=== PATIENT | female | born 1955 | race Caucasian/White ===

== ENCOUNTER → 2021-01-29 | Outpatient (CLI) | payer MEDICARE, MEDICAID ==
--- NOTE | 2021-01-30 07:45 | REP ---
INDICATION: DYSPHAGIA COMPARISON: None. TECHNIQUE: Chacon scale and color evaluation of the thyroid gland using the linear high frequency transducer. FINDINGS: The thyroid gland is normal in contour, shape, size, and echogenicity. No nodule/mass or cystic abnormalities are appreciated. Right thyroid lobe measures 4.6 x 1.5 x 1.9 cm. Isthmus measures 4.0 mm in width. Left thyroid lobe measures 3.9 x 1.9 x 1.2 cm. IMPRESSION: Normal thyroid ultrasound. <Electronically signed by Fidencio Juarez > 01/30/21 [id number]
== END ==
LOC: M RAD 16:09
PROVIDERS: ATTEND Specialist
DX: R13.14 Dysphagia, pharyngoesophageal phase (principal)

== ENCOUNTER → 2021-05-26 | Outpatient (REF) | payer MEDICARE, MEDICAID ==
[2021-05-26 18:29] LABS: MALB URINE SIEMENS 30.9 MG/L; MAU/CREAT RATIO 26.6 MCG/MG (0.0-30.0)
== END ==
LOC: M LAB REF 16:42
PROVIDERS: ATTEND Nurse Practitioner Family
DX: E11.65 Type 2 diabetes mellitus with hyperglycemia (principal)

== ENCOUNTER → 2023-08-26 | Outpatient (CLI) | payer MEDICARE, MEDICAID ==
[~2023-08-26] MED LIST: ISOVUE-300 61% 100ML VIAL As Ordered ONE; LIDOCAINE 1% MDV 20ML VIAL As Ordered ONE; methylPREDNISolone SUSP 40MG/ML 1ML VIAL (DEPO MEDROL) As Ordered ONE
== END ==
LOC: M RAD 11:03
PROVIDERS: ATTEND Physician Assistant Surgical
DX: M16.11 Unilateral primary osteoarthritis, right hip (principal)
CPT/HCPCS: J1030; Q9967

== ENCOUNTER 2023-11-08 06:40 | Day surgery (SDC) | payer MEDICARE, MEDICAID ==
[~2023-11-08] VITALS: Ht 152.4 cm; Wt 94.2 kg
[~2023-11-08 06:40] MED LIST changes: +ACET650T61 PO; +ASPI-161 PO; +CETI10CH PO; +CINN500C12 PO; +FENO145T7 PO; +GALZ50CA PO; +GLIM4TAB5 PO; -ISOVUE-300 61% 100ML VIAL As Ordered ONE; +JANU100T PO; +JARD1TAB PO; -LIDOCAINE 1% MDV 20ML VIAL As Ordered ONE; +LISI10TA22 PO; +METF-838 PO; +NS 1,000 ML IV ONE; +PANT40TA29 PO; +SIMV40TA20 PO; +TRUL10IN; +VITA100093 PO; +ZYRTTAB8 PO; -methylPREDNISolone SUSP 40MG/ML 1ML VIAL (DEPO MEDROL) As Ordered ONE
[2023-11-08] MEDS ORDERED: LIDOCAINE 2% 100MG/5ML SDV (FOR ANES.) As Ordered ONE (07:18)
[2023-11-08] MEDS ORDERED: propofoL 500 MG/50 ML VIAL As Ordered ONE (07:19)
[2023-11-08] MEDS ORDERED: fentaNYL 100 MCG/2 ML INJECTION As Ordered ONE (07:19)
[2023-11-08] MEDS ORDERED: ONDANSETRON 4MG 2ML VIAL IV STA (08:26)
[2023-11-08 08:45] VITALS: TEMP 98.4
[2023-11-08 10:15] VITALS: BP 168/93; O2SAT 97
[2023-11-10] MEDS ORDERED: VITA-199 PO (09:21)
[2023-11-10] MEDS ORDERED: MELA3TAB49 PO (09:21)
== END 2023-11-08 11:54 | disposition home or self-care (01) ==
LOC: M OPP 06:40
PROVIDERS: ATTEND Internal Medicine Gastroenterology
DX: K22.89 Other specified disease of esophagus (principal); K22.2 Esophageal obstruction; K29.70 Gastritis, unspecified, without bleeding; R13.10 Dysphagia, unspecified; E11.9 Type 2 diabetes mellitus without complications; Z79.02 Long term (current) use of antithrombotics/antiplatelets; Z79.1 Long term (current) use of non-steroidal anti-inflammatories (NSAID); Z79.52 Long term (current) use of systemic steroids; Z79.82 Long term (current) use of aspirin; Z79.84 Long term (current) use of oral hypoglycemic drugs; Z79.899 Other long term (current) drug therapy
CPT/HCPCS: 43239; 88305; J3010

== ENCOUNTER → 2023-12-19 | Outpatient (CLI) | payer MEDICARE, MEDICAID ==
[~2023-12-19] MED LIST changes: -ASPI-161 PO; +ASPI-615 PO; +CLOT1CRE56 TOP; +LIDOCAINE 1% MDV 20ML VIAL As Ordered ONE; +MELA3TAB49 PO; -NS 1,000 ML IV ONE; +VITA-199 PO
[2023-12-19 10:15] VITALS: TEMP 98
[2023-12-19 11:30] VITALS: BP 124/74; O2SAT 96
== END ==
LOC: M IRPRO 09:59
PROVIDERS: ATTEND Internal Medicine Medical Oncology
DX: R59.9 Enlarged lymph nodes, unspecified (principal)

== ENCOUNTER → 2023-12-26 | Outpatient (CLI) | payer MEDICARE, MEDICAID ==
[~2023-12-26] MED LIST changes: -LIDOCAINE 1% MDV 20ML VIAL As Ordered ONE; +PROHANCE 279.3MG/ML 15ML VIAL ONE; +PROHANCE 279.3MG/ML 5ML VIAL ONE
== END ==
LOC: M PLAIMG 15:00
PROVIDERS: ATTEND Internal Medicine Medical Oncology
DX: R92.343 Mammographic extreme density, bilateral breasts (principal); R59.0 Localized enlarged lymph nodes; R92.2 Inconclusive mammogram
CPT/HCPCS: A9576; C8908

== ENCOUNTER → 2024-07-06 | Outpatient (CLI) | payer MEDICARE, MEDICAID ==
[~2024-07-06] MED LIST changes: +BARIUM SULFATE 700 MG TABLET (E-Z-DISK) As Ordered ONE; +E-Z-HD 98% w/w 340GM SUSP BTL As Ordered ONE; +E-Z-PAQUE 96% w/w SUSP 176GM BTL As Ordered ONE; -PROHANCE 279.3MG/ML 15ML VIAL ONE; -PROHANCE 279.3MG/ML 5ML VIAL ONE; +VARIBAR NECTAR 40% w/v 240ML SUSP BTL As Ordered ONE; +VARIBAR PUDDING 40% w/v 230ML TUBE As Ordered ONE
== END ==
LOC: M RAD 11:00
PROVIDERS: ATTEND Nurse Practitioner Family
DX: R13.10 Dysphagia, unspecified (principal); K22.2 Esophageal obstruction

== ENCOUNTER → 2024-11-27 | Outpatient (CLI) | payer MEDICARE, MEDICAID ==
[~2024-11-27] MED LIST changes: -BARIUM SULFATE 700 MG TABLET (E-Z-DISK) As Ordered ONE; -E-Z-HD 98% w/w 340GM SUSP BTL As Ordered ONE; -E-Z-PAQUE 96% w/w SUSP 176GM BTL As Ordered ONE; +NYST1POW3 TOP; +TIRZ2.5P; -VARIBAR NECTAR 40% w/v 240ML SUSP BTL As Ordered ONE; -VARIBAR PUDDING 40% w/v 230ML TUBE As Ordered ONE
== END ==
LOC: M WHC 12:09
PROVIDERS: ATTEND Surgery
DX: R59.0 Localized enlarged lymph nodes (principal)

== ENCOUNTER → 2025-05-28 | Outpatient (CLI) | payer MEDICARE, MEDICAID ==
[~2025-05-28] MED LIST changes: -GALZ50CA PO; +ISOVUE-370 76% 100 ML VIAL ONE; +ZINC50CA4 PO
== END ==
LOC: M PLAIMG 09:51
PROVIDERS: ATTEND Nurse Practitioner Women's Health
DX: R59.0 Localized enlarged lymph nodes (principal); I25.10 Atherosclerotic heart disease of native coronary artery without angina pectoris
CPT/HCPCS: 71260; Q9967

== ENCOUNTER → 2025-06-25 | Outpatient (CLI) | payer MEDICARE, MEDICAID | LOC: M PLAIMG 08:42 | DX: R59.0 Localized enlarged lymph nodes (principal); M50.30 Other cervical disc degeneration, unspecified cervical region | CPT/HCPCS: 70491; Q9967 ==

== ENCOUNTER → 2025-10-14 | Outpatient (CLI) | payer MEDICARE, MEDICAID ==
[~2025-10-14] MED LIST changes: -ISOVUE-370 76% 100 ML VIAL ONE; +LOSA25TA13 PO
== END ==
LOC: M WHC 08:04
PROVIDERS: ATTEND Surgery
DX: R59.0 Localized enlarged lymph nodes (principal)